=== PATIENT | female | born 1965 | race Caucasian/White ===

== ENCOUNTER → 2016-08-13 | Outpatient (CLI) | payer OTHER ==
--- NOTE | 2016-08-14 08:40 | MM ---
Reason for exam: screening (asymptomatic). Last mammogram was performed 1 year ago. History: Benign left breast aspiration of the left breast, June 08, 2013. Took estrogen for 6 months beginning at age 47. Physical Findings: A clinical breast exam by your physician is recommended on an annual basis and results should be correlated with mammographic findings. MG Screening Mammo w CAD Bilateral CC and MLO view(s) were taken. Prior study comparison: August 08, 2015, bilateral MG screening mammo w CAD. July 26, 2014, bilateral MG diagnostic mammo w CAD PRICILA. There are scattered fibroglandular densities. No significant changes when compared with prior studies. ASSESSMENT: Negative, BI-RAD 1 RECOMMENDATION: Routine screening mammogram of both breasts in 1 year.
== END | disposition home or self-care (01) ==
LOC: RADMAMWWP 11:10
PROVIDERS: ATTEND Internal Medicine
DX: Z12.31 Encounter for screening mammogram for malignant neoplasm of breast (principal)

== ENCOUNTER → 2017-10-28 | Outpatient (CLI) | payer OTHER ==
--- NOTE | 2017-10-29 10:45 | MM ---
Reason for exam: screening (asymptomatic). Last mammogram was performed 1 year and 2 months ago. History: Benign left breast aspiration of the left breast, June 08, 2013. Took estrogen for 6 months beginning at age 47. Physical Findings: A clinical breast exam by your physician is recommended on an annual basis and results should be correlated with mammographic findings. MG Screening Mammo w CAD Bilateral CC and MLO view(s) were taken. Prior study comparison: August 13, 2016, bilateral MG screening mammo w CAD. August 08, 2015, bilateral MG screening mammo w CAD. There are scattered fibroglandular densities. There is no discrete abnormality. ASSESSMENT: Negative, BI-RAD 1 RECOMMENDATION: Routine screening mammogram of both breasts in 1 year.
== END | disposition home or self-care (01) ==
LOC: RADMAMWWP 10:02
PROVIDERS: ATTEND Internal Medicine
DX: Z12.31 Encounter for screening mammogram for malignant neoplasm of breast (principal)
CPT/HCPCS: 77067

== ENCOUNTER → 2019-04-18 | Outpatient (CLI) | payer OTHER ==
[2019-04-18 11:43] LABS: Basophils # (A) 0.1 k/uL (0-0.2); Basophils % (A) 1 %; Eosinophils # (A) 0.2 k/uL (0-0.7); Eosinophils % (A) 2 %; HCT 48.5 % (34.0-46.0); HGB 15.6 gm/dL (11.4-16.0); Lymphocytes # (A) 2.4 k/uL (1.0-4.8); Lymphocytes % (A) 23 %; MCH 30.3 pg (25.0-35.0); MCHC 32.1 g/dL (31.0-37.0); MCV 94.3 fL (80.0-100.0); Monocytes # (A) 0.6 k/uL (0-1.0); Monocytes % (A) 5 %; Neutrophils # (A) 7.2 k/uL (1.3-7.7); Neutrophils % (A) 68 %; Platelet Count 392 k/uL (150-450); RBC 5.14 m/uL (3.80-5.40); RDW 12.8 % (11.5-15.5); WBC 10.6 k/uL (3.8-10.6)
[2019-04-18 11:50] LABS: ALT 18 U/L (4-34); AST 23 U/L (14-36); African American GFR (CKD) >90 (>60 ml/min/1.73 sqM); Albumin 4.4 g/dL (3.5-5.0); Alkaline Phosphatase 68 U/L (38-126); Anion Gap 6 mmol/L; Blood Urea Nitrogen 15 mg/dL (7-17); Calcium 9.9 mg/dL (8.4-10.2); Carbon Dioxide 28 mmol/L (22-30); Chloride 106 mmol/L (98-107); Cholesterol 221 mg/dL (<200); Glucose 108 mg/dL (74-99); HDL Cholesterol 62 mg/dL (40-60); LDL Cholesterol,Calculated 133 mg/dL (0-99); Non-African American GFR(CKD) >90 (>60 ml/min/1.73 sqM); Potassium 5.1 mmol/L (3.5-5.1); Sodium 140 mmol/L (137-145); Total Bilirubin 0.6 mg/dL (0.2-1.3); Total Protein 7.2 g/dL (6.3-8.2); Triglycerides 128 mg/dL (<150)
--- NOTE | 2019-04-18 16:06 | XR ---
EXAMINATION TYPE: XR knee limited LT DATE OF EXAM: 04/18/2019 COMPARISON: None HISTORY: Knee arthropathy TECHNIQUE: 2 view left knee FINDINGS: Joint spaces are preserved. No joint effusion is evident. No acute osseous abnormality is e vident. IMPRESSION: 1. Normal 2 view left knee.
== END | disposition home or self-care (01) ==
LOC: RADXRMAIN 10:17
PROVIDERS: ATTEND Internal Medicine
DX: M17.10 Unilateral primary osteoarthritis, unspecified knee (principal); Z00.01 Encounter for general adult medical examination with abnormal findings; E78.00 Pure hypercholesterolemia, unspecified
CPT/HCPCS: 36415; 80053; 80061; 85025

== ENCOUNTER → 2019-08-24 | Outpatient (CLI) | payer OTHER ==
--- NOTE | 2019-08-26 13:29 | MM ---
Reason for exam: screening (asymptomatic). Last mammogram was performed 1 year and 10 months ago. History: Patient is postmenopausal. Benign left breast aspiration of the left breast, June 08, 2013. Took estrogen for 6 months beginning at age 47. Physical Findings: A clinical breast exam by your physician is recommended on an annual basis and results should be correlated with mammographic findings. MG Screening Mammo w CAD Bilateral CC and MLO view(s) were taken. Prior study comparison: October 28, 2017, bilateral MG screening mammo w CAD. August 13, 2016, bilateral MG screening mammo w CAD. August 08, 2015, bilateral MG screening mammo w CAD. November 18, 2013, left breast MG diagnostic mammo LT w CAD. There are scattered fibroglandular densities. No significant changes when compared with prior studies. ASSESSMENT: Benign, BI-RAD 2 RECOMMENDATION: Routine screening mammogram of both breasts in 1 year.
== END | disposition home or self-care (01) ==
LOC: RADMAMWWP 09:03
PROVIDERS: ATTEND Internal Medicine
DX: Z12.31 Encounter for screening mammogram for malignant neoplasm of breast (principal)
CPT/HCPCS: 77067

== ENCOUNTER → 2020-11-14 | Outpatient (CLI) | payer OTHER ==
--- NOTE | 2020-11-15 09:32 | MM ---
Reason for exam: screening (asymptomatic). Last mammogram was performed 1 year and 3 months ago. History: Patient is postmenopausal. Family history of breast cancer in sister at age 53. Benign left breast aspiration of the left breast, June 08, 2013. Took estrogen for 6 months beginning at age 47. Physical Findings: A clinical breast exam by your physician is recommended on an annual basis and results should be correlated with mammographic findings. MG 3D Screening Mammo W/Cad Bilateral CC and MLO view(s) were taken. Prior study comparison: August 24, 2019, bilateral MG screening mammo w CAD. October 28, 2017, bilateral MG screening mammo w CAD. The breast tissue is heterogeneously dense. This may lower the sensitivity of mammography. There is no discrete abnormality. No significant changes when compared with prior studies. ASSESSMENT: Negative, BI-RAD 1 RECOMMENDATION: Routine screening mammogram of both breasts in 1 year.
== END | disposition home or self-care (01) ==
LOC: RADMAMWWP 10:56
PROVIDERS: ATTEND Internal Medicine
DX: Z12.31 Encounter for screening mammogram for malignant neoplasm of breast (principal); Z78.0 Asymptomatic menopausal state; Z80.3 Family history of malignant neoplasm of breast
CPT/HCPCS: 77063; 77067

== ENCOUNTER → 2021-05-16 | Outpatient (CLI) | payer OTHER ==
--- NOTE | 2021-05-16 13:51 | XR ---
Lumbosacral spine, sacrum and coccyx 3 views of the sacrum and coccyx, 5 views lumbosacral spine history: G544 LS ROOT DISORDERS Anterolisthesis grade 1 L5-S1. Lumbar vertebral bodies show preserved height. No evident spondylolysi s. There is multilevel spondylosis. Loss of disc height is present at intervertebral levels. Sclerosi s present in the posterior elements of the lower lumbar spine. Loss of disc height present at L5-S1, L4-5 greater than L2-3, L4-5. Bone mineralization is reduced. Sclerosis present in the posterior [place] ents. Questionable 3 mm calcification superimposed over the right kidney could possibly represent bow el content, possible largest calcification or 4 5 mm overlying the left kidney. Sacrum is intact. Pro bable phleboliths, vascular calcifications within the pelvis. Sacroiliac joints show no erosion or an kylosis, mild hypertrophic change, spurring suspected inferiorly. IMPRESSION: Degenerative disc disease, osteopenia, spinal listhesis and facet arthropathy. Difficult to exclude nephrolithiasis. Mild arthropathy of the sacroiliac joints suspected.
== END | disposition home or self-care (01) ==
LOC: RADXRYALE 13:16
PROVIDERS: ATTEND Internal Medicine
DX: M51.36 Other intervertebral disc degeneration, lumbar region (principal); M85.88 Other specified disorders of bone density and structure, other site; M47.816 Spondylosis without myelopathy or radiculopathy, lumbar region; M43.16 Spondylolisthesis, lumbar region
CPT/HCPCS: 72110; 72220

== ENCOUNTER → 2022-01-02 | Outpatient (CLI) | payer OTHER ==
--- NOTE | 2022-01-03 08:03 | MM ---
Reason for Exam: Screening (asymptomatic). Last mammogram was performed 1 year(s) and 2 month(s) ago. Patient History: Menarche at age 10. First Full-Term at age 16. Hysterectomy at age 27. Postmenopausal. Estrogen for 6 months from age 47 until age 48. 06/08/2013, Benign Cyst Aspiration on the left side. Sister had breast cancer, age 53. Risk Values: Marci 5 year model risk: 2.6%. NCI Lifetime model risk: 15.4%. Prior Study Comparison: 10/28/2017 Bilateral Screening Mammogram, [facility]. 08/24/2019 Bilateral Screening Mammogram, [facility]. 11/14/2020 Bilateral Screening Mammogram, [facility]. Tissue Density: The breast tissue is almost entirely fat. Findings: Analyzed By CAD. There is no suspicious group of microcalcifications or new suspicious mass in either breast. Overall Assessment: Negative, BI-RAD 1 Management: Screening Mammogram of both breasts in 1 year. A clinical breast exam by your physician is recommended on an annual basis and results should be correlated with mammographic findings. [facility] will attempt to contact patient to return for supplemental views and ultrasound if indicated. Electronically signed and approved by: Anders Valdivia DO
== END | disposition home or self-care (01) ==
LOC: RADMAMWWP 09:47
PROVIDERS: ATTEND Internal Medicine
DX: Z12.31 Encounter for screening mammogram for malignant neoplasm of breast (principal); Z78.0 Asymptomatic menopausal state; Z80.3 Family history of malignant neoplasm of breast
CPT/HCPCS: 77063; 77067

== ENCOUNTER → 2022-06-19 | Outpatient (CLI) | payer OTHER ==
--- NOTE | 2022-06-19 18:54 | CA ---
Transthoracic Echo Report Name: Tonny Gupta Age: 56 Gender: F : 1965 Exam Date: 06/19/2022 12:34 Exam Location: [facility] Ht (in): 61 Wt (lb): 160 Ordering Physician: Kim Garcia MD Attending/Referring Phys: Crime Specialist Aida Damon RDCS Procedure CPT: Indications: R00.2 Cardiac Hx: Technical Quality: Good Contrast 1: Total Dose (mL): Contrast 2: Total Dose (mL): MEASUREMENTS (Male / Female) Normal Values 2D ECHO LV Diastolic Diameter PLAX 4.1 cm 4.2 - 5.9 / 3.9 - 5.3 cm LV Systolic Diameter PLAX 2.7 cm IVS Diastolic Thickness 0.8 cm 0.6 - 1.0 / 0.6 - 0.9 cm LVPW Diastolic Thickness 1.1 cm 0.6 - 1.0 / 0.6 - 0.9 cm LV Relative Wall Thickness 0.5 RV Internal Dim ED PLAX 2.8 cm LA Systolic Diameter LX 2.8 cm 3.0 - 4.0 / 2.7 - 3.8 cm LV Diastolic Volume MOD 4C 84.5 cm??? LV Systolic Volume MOD 4C 34.3 cm??? LV Ejection Fraction MOD 4C 59.4 % LV Diastolic Length 4C 8.4 cm LV Systolic Length 4C 6.5 cm LV Diastolic Volume MOD 2C 54.4 cm??? LV Systolic Volume MOD 2C 21.3 cm??? LV Ejection Fraction MOD 2C 60.8 % LV Diastolic Length 2C 8.1 cm LV Systolic Length 2C 6.4 cm LA Volume 30.8 cm??? 18 - 58 / 22 - 52 cm??? M-MODE Aortic Root Diameter MM 2.8 cm MV E Point Septal Separation 0.5 cm AV Cusp Separation MM 1.9 cm DOPPLER AV Peak Velocity 126.7 cm/s AV Peak Gradient 6.4 mmHg MV Area PHT 2.4 cm??? Mitral E Point Velocity 56.7 cm/s Mitral A Point Velocity 74.5 cm/s Mitral E to A Ratio 0.8 MV Deceleration Time 314.5 ms MV E' Velocity 8.0 cm/s Mitral E to MV E' Ratio 7.1 TR Peak Velocity 194.8 cm/s TR Peak Gradient 15.2 mmHg Right Ventricular Systolic Press 20.2 mmHg FINDINGS Left Ventricle Left ventricular ejection fraction is estimated at 55-60 %. Left ventricular cavity size normal. Right Ventricle Normal right ventricular size and function. Right ventricular systolic pressure within normal limits. Right Atrium Normal right atrial size. Left Atrium Normal left atrial size. Mitral Valve Structurally normal mitral valve. No mitral stenosis, or prolapse. Trace mitral regurgitation Aortic Valve Trileaflet aortic valve. No aortic valve stenosis or regurgitation. Tricuspid Valve Structurally normal tricuspid valve. No tricuspid stenosis, or prolapse. Mild tricuspid regurgitation Pulmonic Valve Structurally normal pulmonic valve. No pulmonic regurgitation. Pericardium Normal pericardium. No pericardial effusion. Aorta Normal size aortic root and proximal ascending aorta. CONCLUSIONS 1. Normal left ventricle size and systolic function 2. Mild tricuspid regurgitation with no evidence of pulmonary hypertension Previewed by: Dr. Karlene Woodruff MD (Electronically Signed) Final Date: 19 Jun 2022 18:53
== END | disposition home or self-care (01) ==
LOC: RADECHMAIN 12:20
PROVIDERS: ATTEND Internal Medicine
DX: I07.1 Rheumatic tricuspid insufficiency (principal); R00.2 Palpitations
CPT/HCPCS: 93306

== ENCOUNTER → 2022-06-21 | Outpatient (CLI) | payer OTHER ==
--- NOTE | 2022-06-21 12:27 | CA ---
Exercise Stress Test Report Name: Tonny Gupta Exam Date: 06/21/2022 09:06 Exam Location: [facility] Ht (in): 61 Wt (lb): 160 BSA: 1.72 Ordering Phys: Kim Garcia MD Referring Phys: DOMINGA, Technologist: Austen Zhao Age: 56 Gender: F : 1965 Procedure CPT: Indications: R00.2 palpitations ICD-10 Codes: Patient History: Medications: METFORMIN, CRESTOR Meds past 24 hrs: Pretest Chest Pain: STRESS TEST Kareem Protocol Exercise Duration (min:sec): 08:[address] Depressions (mm): 0 Angina Score: 0 Duong Score: 8.12 Resting HR (bpm): 92 Peak HR (bpm): 164 Resting BP (mmHg): 139 / 85 Peak BP (mmHg): 190 / 73 MPHR: 163 Target HR: 139 % MPHR: 101 METS: 10.3 Total Dose: Peak Dose: Atropine: Double Product: 91274 BP Response: Stress Termination: Reached target heart rate Stress Symptoms: NO SYMPTOMS Stress Summary: The patient's target heart rate was achieved ECG ANALYSIS Resting ECG: Sinus rhythm. Normal conduction. No arrhythmias. Normal repolarization. Stress ECG: No ECG evidence of ischemia with exercise. CONCLUSIONS 1. Good exercise tolerance 2. Normal electrocardiographic response to exercise with no evidence of stress induced ischemia. Dr. Karlene Woodruff MD (Electronically Signed) Final Date: 21 Jun 2022 12:26
== END | disposition home or self-care (01) ==
LOC: RADNMMAIN 08:33
PROVIDERS: ATTEND Internal Medicine
DX: R07.9 Chest pain, unspecified (principal); R00.2 Palpitations
CPT/HCPCS: 93017

== ENCOUNTER → 2023-02-01 | Outpatient (CLI) | payer OTHER ==
[2023-02-01 20:56] LABS: Shrimp IgE <0.10 kU/L; Walnut IgE (Food) 0.94 kU/L
== END | disposition home or self-care (01) ==
LOC: LABWHC1 13:36
PROVIDERS: ATTEND Otolaryngology
DX: L50.0 Allergic urticaria (principal); J30.89 Other allergic rhinitis; B44.89 Other forms of aspergillosis
CPT/HCPCS: 36415; 86003

== ENCOUNTER → 2023-03-26 | Outpatient (CLI) | payer OTHER ==
[2023-03-26 20:04] LABS: Clam IgE <0.10 kU/L; Codfish IgE <0.10 kU/L; Egg White IgE <0.10 kU/L; Peanut IgE 1.76 kU/L; Scallop IgE <0.10 kU/L; Shrimp IgE <0.10 kU/L; Soybean IgE 1.23 kU/L; Walnut IgE (Food) 0.75 kU/L
== END | disposition home or self-care (01) ==
LOC: LABWHC1 11:43
PROVIDERS: ATTEND Otolaryngology
DX: J30.89 Other allergic rhinitis (principal)
CPT/HCPCS: 36415; 82785; 86003

== ENCOUNTER → 2023-03-27 | Outpatient (CLI) | payer OTHER ==
--- NOTE | 2023-03-27 16:32 | MR ---
EXAMINATION TYPE: MR brain wo con DATE OF EXAM: 03/27/2023 3:36 PM CLINICAL INDICATION:Female, 57 years old with history of R42 DIZZINESS GIDDINESS; PHH, Dizziness, vis ion changes, nausea, ringing in both ears COMPARISON: None. TECHNIQUE: Multi planar, multi sequence imaging was performed through the brain including: T1, T2, In version recovery, Diffusion weighted imaging, and gradient echo imaging. No gadolinium was given. FINDINGS: The restrepo-white junctions, ventricular system, basal cisterns appear unremarkable. Single focus of whi te matter change in the left frontal lobe measuring up to 6 mm. Midline structures show no abnormalit y. Diffusion-weighted imaging shows no evidence of restricted diffusion. The susceptibility weighted images do not reveal any evidence for micro-hemorrhage. Blooming artifact within the left frontal lob e compatible with omental venous anomaly. Probable prominent perivascular spaces bilaterally in the b aguilar ganglia. The bone marrow signal is within normal limits. Paranasal sinuses and mastoid air cells: No significant paranasal sinus disease. Visualized orbits: Orbital contents are intact. The internal auditory canal sequences demonstrate no significant irregularity. The 7th cranial nerve s, 8 cranial nerves, and cerebellar pontine angles appear unremarkable. After the administration italia olinium, no abnormal enhancement is seen within the internal auditory canals. IMPRESSION: 1. No evidence of intracranial mass or acute/subacute infarct. 2. Single focus of nonspecific white matter change in left frontal lobe. 3. Left frontal lobe developmental venous anomaly. 4. No evidence of internal auditory canal abnormality.
== END | disposition home or self-care (01) ==
LOC: RADMRIMAIN 14:25
PROVIDERS: ATTEND Internal Medicine
DX: R42 Dizziness and giddiness (principal); G31.89 Other specified degenerative diseases of nervous system
CPT/HCPCS: 70551

== ENCOUNTER 2023-04-14 12:15 | Emergency (ER) | payer OTHER ==
[2023-04-14] MEDS: methylPREDNISolone SOD SUCCI 125 MG/2 ML VIAL IV STA (13:42)
[2023-04-14] MEDS: FAMOTIDINE 20 MG/2 ML VIAL IV STA (13:45)
[2023-04-14] MEDS: diphenhydrAMINE 50 MG/ML 1 ML VIAL IVP STA (13:46)
[2023-04-14 14:13] VITALS: BP 146/82; PULSE 98; RESP 17; TEMP 98.5
--- NOTE | 2023-04-14 14:28 | ED ---
Allergic Reaction HPI - General Chief complaint: Allergic Reaction Stated complaint: Allergic Reaction Time Seen by Provider: 04/14/23 12:40 Source: patient Mode of arrival: ambulatory Limitations: no limitations - History of Present Illness Initial Comments: Patient is a 57-year-old female who presents to the emergency department with worsening allergic symptoms. States that she has had allergic symptoms for the past 3 months. She has been following with Dr. Frank. He has done several tests and the patient states that she has a lot of food allergies. She feels as if over the past couple of days she has had worsening symptoms. She feels as if she is having a difficult time breathing and swallowing. She takes Shamika and Pepcid every day. She states that she has had to take Benadryl pretty consistently because her symptoms seem to have worsened. She is unsure of her current trigger. She has plans to be seen at [facility] for her condition. No other alleviating, precipitating or modifying factors - Related Data Previous Rx's Medication Instructions Recorded predniSONE [Deltasone] 20 mg PO DIRECTED #34 tab 04/14/23 Allergies Allergy/AdvReac Type Severity Reaction Status Date / Time No Known Allergies Allergy Verified 04/14/23 12:36 Review of Systems ROS Statement: Those systems with pertinent positive or pertinent negative responses have been documented in the HPI. ROS Other: All systems not noted in ROS Statement are negative. Past Medical History Past Medical History: No Reported History History of Any Multi-Drug Resistant Organisms: None Reported Past Surgical History: Section, Tonsillectomy Past Psychological History: No Psychological Hx Reported Smoking Status: Current every day smoker Past Alcohol Use History: None Reported Past Drug Use History: None Reported General Exam Limitations: no limitations General appearance: alert, in no apparent distress Head exam: Present: atraumatic, normocephalic, normal inspection Eye exam: Present: normal appearance, PERRL, EOMI. Absent: scleral icterus, conjunctival injection, periorbital swelling ENT exam: Present: normal exam, mucous membranes moist Neck exam: Present: normal inspection. Absent: tenderness, meningismus, lymphadenopathy Respiratory exam: Present: normal lung sounds bilaterally. Absent: respiratory distress, wheezes, rales, rhonchi, stridor Cardiovascular Exam: Present: regular rate, normal rhythm, normal heart sounds. Absent: systolic murmur, diastolic murmur, rubs, gallop, clicks GI/Abdominal exam: Present: soft, normal bowel sounds. Absent: distended, tenderness, guarding, rebound, rigid Extremities exam: Present: normal inspection, full ROM, normal capillary refill. Absent: tenderness, pedal edema, joint swelling, calf tenderness Back exam: Present: normal inspection Neurological exam: Present: alert, oriented X3, CN II-XII intact Psychiatric exam: Present: normal affect, normal mood Skin exam: Present: warm, dry, intact, normal color. Absent: rash Course Vital Signs 04/14/23 04/14/23 04/14/23 12:34 13:30 13:45 Temperature 98.8 F 98.5 F Pulse Rate 101 H 98 Respiratory 16 17 17 Rate Blood Pressure 146/78 146/82 O2 Sat by Pulse 97 100 Oximetry Medical Decision Making - Medical Decision Making Was pt. sent in by a medical professional or institution (, PA, FISH PROTECTOR, urgent care, hospital, or skilled nursing...) When possible be specific @ -No Did you speak to anyone other than the patient for history (EMS, parent, family, police, friend...)? What history was obtained from this source @ -No Did you review nursing and triage notes (agree or disagree)? Why? @ -I reviewed and agree with nursing and triage notes Were old charts reviewed (outside hosp., previous admission, EMS record, old EKG, old radiological studies, urgent care reports/EKG's, skilled nursing records)? Report findings @ -No old charts were reviewed Differential Diagnosis (chest pain, altered mental status, abdominal pain women, abdominal pain men, vaginal bleeding, weakness, fever, dyspnea, syncope, headache, dizziness, GI bleed, back pain, seizure, CVA, palpatations, mental health, musculoskeletal)? @ -Allergic reaction, anaphylaxis, reflux, anxiety EKG interpreted by me (3pts min.). @ -Not done X-rays interpreted by me (1pt min.). @ -None done CT interpreted by me (1pt min.). @ -None done U/S interpreted by me (1pt. min.). @ -None done What testing was considered but not performed or refused? (CT, X-rays, U/S, labs)? Why? @ -None What meds were considered but not given or refused? Why? @ -None Did you discuss the management of the patient with other professionals (professionals i.e. , PA, FISH PROTECTOR, lab, RT, psych nurse, social sciences professor, flight attendant ramp, teacher, wildlife officer, child support case officer)? Give summary @ -No Was smoking cessation discussed for >3mins.? @ -No Was critical care preformed (if so, how long)? @ -No Were there social determinants of health that impacted care today? How? (Homelessness, low income, unemployed, alcoholism, drug addiction, transportation, low edu. Level, literacy, decrease access to med. care, penitentiary, rehab)? @ -No Was there de-escalation of care discussed even if they declined (Discuss DNR or withdrawal of care, Hospice)? DNR status @ -No What co-morbidities impacted this encounter? (DM, HTN, Smoking, COPD, CAD, Cancer, CVA, ARF, Chemo, Hep., AIDS, mental health diagnosis, sleep apnea, morbid obesity)? @ -None Was patient admitted / discharged? Hospital course, mention meds given and route, prescriptions, significant lab abnormalities, going to OR and other pertinent info. @ -Upon arrival patient was placed into room 4. Thorough history and physical exam was performed. Patient has no visible signs of hives. No itching. No vomiting. No signs of respiratory distress. No tongue or lip swelling. No facial swelling. No neck swelling. She feels as if she cannot swallow but posterior pharynx is clear. No stridor. Patient was given Pepcid Benadryl and Solu-Medrol. She is reevaluated and states that she does feel improved. At this time the patient will be discharged home. I recommend that she follow-up with an deicer repairer electric for further testing. She will be placed on a prednisone course. She is to continue taking her Shamika, Pepcid and Benadryl. Return for any new or worsening symptoms. Patient agreeable and discharged in stable condition Undiagnosed new problem with uncertain prognosis? @ -Yes Drug Therapy requiring intensive monitoring for toxicity (Heparin, Nitro, Insulin, Cardizem)? @ -No Were any procedures done? @ -No Diagnosis/symptom? @ -Acute dysphagia, possible allergic reaction Acute, or Chronic, or Acute on Chronic? @ -Acute Uncomplicated (without systemic symptoms) or Complicated (systemic symptoms)? @ -Complicated Side effects of treatment? @ -No Exacerbation, Progression, or Severe Exacerbation? @ -No Poses a threat to life or bodily function? How? (Chest pain, [place], [place], pneumonia, PE, COPD, DKA, ARF, appy, cholecystitis, CVA, Diverticulitis, Homicidal, Suicidal, threat to staff... and all critical care pts) @ -No Disposition Clinical Impression: Allergic reaction Disposition: HOME SELF-CARE Condition: Stable Instructions (If sedation given, give patient instructions): General Allergic Reaction (ED) Additional Instructions: Please follow-up with the deicer repairer electric or HOME THEATRE TECHNICIAN for further management of your symptoms. Continue taking the Pepcid, Benadryl and Shamika. Use the EpiPen for any airway compromise or passing out. Return for any new or worsening symptoms Prescriptions: predniSONE [Deltasone] 20 mg PO DIRECTED #34 tab Is patient prescribed a controlled substance at d/c from ED?: No Referrals: Kim Garcia MD [Primary Care Provider] - 1-2 days Time of Disposition: 14:28
== END 2023-04-14 14:39 | disposition home or self-care (01) ==
LOC: EC 12:15
DX: T78.40XA Allergy, unspecified, initial encounter (principal); F17.200 Nicotine dependence, unspecified, uncomplicated
CPT/HCPCS: 99283; 96374; 96375 ×2; J1200; J2930; J3490

== ENCOUNTER → 2023-05-07 | Outpatient (CLI) | payer OTHER ==
--- NOTE | 2023-05-07 14:19 | XR ---
EXAMINATION TYPE: XR chest 2V DATE OF EXAM: 05/07/2023 COMPARISON: NONE TECHNIQUE: PA and lateral views submitted. HISTORY: Shortness of breath FINDINGS: The lungs are clear and there is no pneumothorax, pleural effusion, or focal pneumonia. Heart size normal and no overt failure. Osseous structures demonstrate hypertrophic and degenerative changes of the spine. Atherosclerotic change aorta. IMPRESSION: 1. No acute process.
[2023-05-07 18:08] LABS: Basophils # (A) 0.04 X 10*3/uL (0.00-0.10); Basophils % (A) 0.4 %; Eosinophils # (A) 0.07 X 10*3/uL (0.04-0.35); Eosinophils % (A) 0.7 %; HCT 44.6 % (37.2-46.3); HGB 14.9 g/dL (12.0-15.0); Lymphocytes # (A) 2.07 X 10*3/uL (0.90-5.00); Lymphocytes % (A) 21.2 %; MCHC 33.4 g/dL (32.0-37.0); MCV 92.9 FL (80.0-97.0); Mean Platelet Volume 10.7 FL (9.5-12.2); Monocytes # (A) 0.71 X 10*3/uL (0.20-1.00); Monocytes % (A) 7.3 %; NRBC Per 100 WBC 0 X 10*3/uL (0.00-0.01); Neutrophils # (A) 6.85 X 10*3/uL (1.80-7.70); Neutrophils % (A) 70.1 %; Platelet Count 312 X 10*3/uL (140-440); RDW 14.5 % (11.5-14.5); WBC 9.77 X 10*3/uL (4.50-10.00)
[2023-05-07 18:17] LABS: Erythrocyte Sedimentation Rate 9 mm/Hr (0-30)
[2023-05-07 18:30] LABS: Iron 68 UG/DL (50-170); Rheumatoid Factor, Qnt <15 IU/mL (0-15); Total Iron Binding Capacity 393 UG/DL (228-460)
[2023-05-08 14:17] LABS: Chocolate IgE Class CLASS 0; Lettuce IgE Class CLASS 3; Pork IgE Class CLASS 0
== END | disposition home or self-care (01) ==
LOC: RADXRMAIN 13:57
PROVIDERS: ATTEND Internal Medicine Hematology & Oncology
DX: D72.829 Elevated white blood cell count, unspecified (principal); M31.0 Hypersensitivity angiitis; J30.89 Other allergic rhinitis; R06.02 Shortness of breath
CPT/HCPCS: 71046; 82728; 83520; 83540; 83550; 85025; 85652; 86003; 86038; 86431

== ENCOUNTER → 2023-05-29 | Outpatient (CLI) | payer OTHER ==
[2023-05-30 14:41] LABS: Apple IgE Class CLASS 3; Cucumber IgE Class CLASS 3; Oat IgE Class CLASS 3; Onion IgE Class CLASS 3; Pear IgE Class CLASS 3; Potato IgE Class CLASS 3
[2023-05-30 14:42] LABS: Coffee IgE 0.31 kU/L (<0.10); Coffee IgE Class CLASS 0/1; Peach IgE Class CLASS 3
== END | disposition home or self-care (01) ==
LOC: LABWHC1 15:21
PROVIDERS: ATTEND Internal Medicine Gastroenterology
DX: L50.0 Allergic urticaria (principal); J30.89 Other allergic rhinitis; B44.89 Other forms of aspergillosis; R23.2 Flushing
CPT/HCPCS: 36415; 83520; 86003; 86316

== ENCOUNTER → 2023-05-30 | Outpatient (CLI) | payer OTHER | END | disposition home or self-care (01) | LOC: LABWHC1 08:24 | PROVIDERS: ATTEND Internal Medicine Gastroenterology | DX: R23.2 Flushing (principal) ==

== ENCOUNTER 2023-06-05 21:17 | Emergency (ER) | payer OTHER ==
--- NOTE | 2023-06-05 22:05 | ED ---
General Adult HPI - General Chief complaint: Allergic Reaction Stated complaint: Allergic Reaction, Numb lips and tongue Time Seen by Provider: 06/05/23 21:26 Source: patient Mode of arrival: ambulatory Limitations: no limitations - History of Present Illness Initial comments: Dictation was produced using [employer] dictation software. please excuse any gramma tical, word or spelling errors. Chief Complaint: 57-year-old female presents to the emergency department with allergic reaction History of Present Illness: Patient is a 57-year-old female she states that she has several allergies. She has undergone allergy testing and is allergic to multiple substances over the last several minutes she has had allergic reaction including sensation of her throat closing, indigestion. Denies any shortness of breath. Does complain of tingling to her lips. Denies any obvious allergen exposure. She has an EpiPen. The ROS documented in this emergency department record has been reviewed and confirmed by me. Those systems with pertinent positive or negative responses have been documented in the HPI. All other systems are other negative and/or noncontributory. - Related Data Previous Rx's Medication Instructions Recorded predniSONE [Deltasone] 20 mg PO DIRECTED #34 tab 04/14/23 Allergies Allergy/AdvReac Type Severity Reaction Status Date / Time No Known Allergies Allergy Verified 06/05/23 21:20 Review of Systems ROS Statement: Those systems with pertinent positive or pertinent negative responses have been documented in the HPI. ROS Other: All systems not noted in ROS Statement are negative. Past Medical History Past Medical History: No Reported History History of Any Multi-Drug Resistant Organisms: None Reported Past Surgical History: Section, Tonsillectomy Past Psychological History: No Psychological Hx Reported Smoking Status: Current every day smoker Past Alcohol Use History: None Reported Past Drug Use History: None Reported General Exam - General Exam Comments Initial Comments: PHYSICAL EXAM: General Impression: Alert and oriented x3, not in acute distress HEENT: Normocephalic atraumatic, extra-ocular movements intact, pupils equal and reactive to light bilaterally, mucous membranes moist. Cardiovascular: Heart regular rate and rhythm Chest: Able to complete full sentences, no retractions, no tachypnea Abdomen: abdomen soft, non-tender, non-distended, no organomegaly Musculoskeletal: Pulses present and equal in all extremities, no peripheral edema Motor: no focal deficits noted Neurological: CN II-XII grossly intact, no focal motor or sensory deficits noted Skin: Intact with no visualized rashes Psych: Normal affect and mood Limitations: no limitations Course Vital Signs 06/05/23 21:18 Temperature 98 F Pulse Rate 100 Respiratory 18 Rate Blood Pressure 129/84 O2 Sat by Pulse 96 Oximetry - Reevaluation(s) Reevaluation #1: 06/05/23 22:04 Patient has multisystem involvement. Was recommended to patient to get an EpiPen. She does not have any cardiac disease. At this point her symptoms are concerning. She refused EpiPen treatment would prefer to be monitored after being given Decadron and Pepcid and diphenhydramine. Patient states she is afraid to receive epi. She does not feel like her symptoms are that severe. Medical Decision Making - Medical Decision Making Was pt. sent in by a medical professional or institution (, [facility]TY, [facility], urgent care, hospital, or residential...) When possible be specific @ -No Did you speak to anyone other than the patient for history (EMS, parent, family, police, friend...)? What history was obtained from this source @ -No Did you review nursing and triage notes (agree or disagree)? Why? @ -I reviewed and agree with nursing and triage notes Were old charts reviewed (outside hosp., previous admission, EMS record, old EKG, old radiological studies, urgent care reports/EKG's, residential records)? Report findings @ -No old charts were reviewed Differential Diagnosis (chest pain, altered mental status, abdominal pain women, abdominal pain men, vaginal bleeding, musculoskeletal, weakness, fever, dyspnea, syncope, headache, dizziness, GI bleed, back pain, seizure, CVA, palpatations, mental health)? @ -Not applicable EKG interpreted by me (3pts min.). @ -None done X-rays interpreted by me (1pt min.). @ -None done CT interpreted by me (1pt min.). @ -None done U/S interpreted by me (1pt. min.). @ -None done What testing was considered but not performed or refused? (CT, X-rays, U/S, labs)? Why? @ -None What meds were considered but not given or refused? Why? @ -None Did you discuss the management of the patient with other professionals (professionals i.e. , PA, [facility] [facility], lab, RT, psych nurse, social work supervisor, spooler operator, teacher, sales promotion officer, family independence case manager)? Give summary @ -No Was smoking cessation discussed for >3mins.? @ -No Was critical care preformed (if so, how long)? @ -No Were there social determinants of health that impacted care today? How? (Homelessness, low income, unemployed, alcoholism, drug addiction, transportation, low edu. Level, literacy, decrease access to med. care, correction, rehab)? @ -No Was there de-escalation of care discussed even if they declined (Discuss DNR or withdrawal of care, Hospice)? DNR status @ -No What co-morbidities impacted this encounter? (DM, HTN, Smoking, COPD, CAD, Cancer, CVA, ARF, Chemo, Hep., AIDS, mental health diagnosis, sleep apnea, morbid obesity)? @ -None Was patient admitted / discharged? Hospital course, mention meds given and route, prescriptions, significant lab abnormalities, going to OR and other pertinent info. @ -57-year-old female presents to the emergency department for allergic reactions. Vital signs upon arrival are within acceptable limits. Patient no acute distress. She does have some concerning symptoms however. She was offered EpiPen however refused. She wanted to try steroids and antihistamines. Patient given IM injections diphenhydramine and Decadron. She is given oral Pepcid. Patient monitored in emergency department for several minutes with improvement of condition. Patient wants to be discharged. She still to follow- up with her outpatient doctors. Patient has EpiPen's that she carries with her at all times. Undiagnosed new problem with uncertain prognosis? @ -No Drug Therapy requiring intensive monitoring for toxicity (Heparin, Nitro, Insulin, Cardizem)? @ -No Were any procedures done? @ -No Diagnosis/symptom? Acute, or Chronic, or Acute on Chronic? Uncomplicated (without systemic symptoms) or Complicated (systemic symptoms)? @ -Allergic reaction Side effects of treatment? @ -No Exacerbation, Progression, or Severe Exacerbation? @ -No Poses a threat to life or bodily function? How? (Chest pain, [place], [place], pneumonia, PE, COPD, DKA, ARF, appy, cholecystitis, CVA, Diverticulitis, Homicidal, Suicidal, threat to staff... and all critical care pts) @ -yes Disposition Clinical Impression: Allergic reaction Disposition: HOME SELF-CARE Condition: Good Instructions (If sedation given, give patient instructions): Food Allergy (ED) Is patient prescribed a controlled substance at d/c from ED?: No Referrals: Kim Garcia MD [Primary Care Provider] - 1-2 days Time of Disposition: 23:06
[2023-06-05] MEDS: diphenhydrAMINE 50 MG/ML 1 ML VIAL IM STA (22:09)
[2023-06-05] MEDS: DEXAMETHASONE SOD PHOSPHATE 10 MG/ML 1 ML VIAL IM STA (22:09)
[2023-06-05] MEDS: FAMOTIDINE 20 MG TAB PO STA (22:10)
[2023-06-06 00:45] VITALS: BP 130/96; PULSE 92; RESP 20; TEMP 97.8
== END 2023-06-06 00:15 | disposition home or self-care (01) ==
LOC: EC 21:17
DX: T78.40XA Allergy, unspecified, initial encounter (principal); F17.200 Nicotine dependence, unspecified, uncomplicated
CPT/HCPCS: 99283; 96372 ×2; J1200; J1100

== ENCOUNTER → 2023-07-09 | Outpatient (CLI) | payer OTHER ==
[2023-07-10 13:54] LABS: Pea IgE (Grn) 3.03 kU/L (<0.10); Pea(Grn) IgE Class CLASS 2; Pineapple IgE 4.17 kU/L (<0.10); Pineapple IgE Class CLASS 3
[2023-07-10 13:55] LABS: Blueberry IgE 0.48 kU/L (<0.10); Blueberry IgE Class CLASS 1; Broccoli IgE 7.75 kU/L (<0.10); Broccoli IgE Class CLASS 3; Carrot IgE 6.36 kU/L (<0.10); Carrot IgE Class CLASS 3; Sweet Potato IgE 7.77 kU/L (<0.10); Sweet Potato IgE Class CLASS 3; Tea IgE 0.12 kU/L (<0.10); Tea IgE Class CLASS 0/1
[2023-07-10 13:56] LABS: Green Bean IgE 6.21 kU/L (<0.10); Green Bean IgE Class CLASS 3; Watermelon IgE Class CLASS 3
== END | disposition home or self-care (01) ==
LOC: LABWHC1 15:28
PROVIDERS: ATTEND Otolaryngology
DX: L50.0 Allergic urticaria (principal); J30.89 Other allergic rhinitis; B44.89 Other forms of aspergillosis
CPT/HCPCS: 36415; 86003

== ENCOUNTER → 2023-07-23 | Outpatient (CLI) | payer OTHER ==
[2023-07-23 15:09] LABS: Basophils # (A) 0.05 X 10*3/uL (0.00-0.10); Basophils % (A) 0.5 %; Eosinophils # (A) 0.09 X 10*3/uL (0.04-0.35); HCT 47.4 % (37.2-46.3); HGB 15.9 g/dL (12.0-15.0); Lymphocytes # (A) 1.98 X 10*3/uL (0.90-5.00); Lymphocytes % (A) 21.7 %; MCH 31.2 pg (27.0-32.0); MCHC 33.5 g/dL (32.0-37.0); MCV 92.9 FL (80.0-97.0); Mean Platelet Volume 9.9 FL (9.5-12.2); Monocytes # (A) 0.83 X 10*3/uL (0.20-1.00); Monocytes % (A) 9.1 %; NRBC Per 100 WBC 0 X 10*3/uL (0.00-0.01); Neutrophils # (A) 6.14 X 10*3/uL (1.80-7.70); Neutrophils % (A) 67.5 %; Platelet Count 403 X 10*3/uL (140-440); WBC 9.11 X 10*3/uL (4.50-10.00)
[2023-07-23 15:33] LABS: ALT 13 U/L (8-44); AST 13 U/L (13-35); Albumin 4.4 g/dL (3.8-4.9); Albumin/Globulin Ratio 1.91 Ratio (1.60-3.17); Alkaline Phosphatase 60 U/L (41-126); BUN/Creat Ratio 27.29 Ratio (12.00-20.00); Blood Urea Nitrogen 19.1 mg/dL (9.0-27.0); Calcium 9.5 mg/dL (8.7-10.3); Carbon Dioxide 24.3 mmol/L (21.6-31.8); Chloride 104 mmol/L (96-109); Chol/HDL Ratio 5.52 Ratio; Globulin 2.3 g/dL (1.6-3.3); Glucose 125 mg/dL (70-110); LDL Cholesterol,Calculated 233.7 mg/dL (0.0-131.0); Potassium 4.3 mmol/L (3.5-5.5); Sodium 139 mmol/L (135-145); Total Bilirubin 0.5 mg/dL (0.3-1.2); Total Protein 6.7 g/dL (6.2-8.2)
== END | disposition home or self-care (01) ==
LOC: LABWHC1 09:10
PROVIDERS: ATTEND Internal Medicine
DX: Z00.01 Encounter for general adult medical examination with abnormal findings (principal); E78.00 Pure hypercholesterolemia, unspecified; R73.9 Hyperglycemia, unspecified
CPT/HCPCS: 36415; 80053; 80061; 83036; 85025

== ENCOUNTER → 2023-11-26 | Outpatient (CLI) | payer OTHER ==
--- NOTE | 2023-11-27 10:35 | MM ---
Reason for Exam: Screening (asymptomatic). Last mammogram was performed 1 year(s) and 11 month(s) ago. Patient History: Menarche at age 10. First Full-Term at age 16. Hysterectomy at age 27. Postmenopausal. Estrogen for 6 months from age 47 until age 48. 06/08/2013, Benign Cyst Aspiration on the left side. Sister had breast cancer, age 53. Risk Values: Marci 5 year model risk: 2.8%. NCI Lifetime model risk: 14.8%. Prior Study Comparison: 08/24/2019 Bilateral Screening Mammogram, [facility]. 11/14/2020 Bilateral Screening Mammogram, [facility]. 01/02/2022 Bilateral MG 3D screening mammo w/cad, [facility]. Tissue Density: The breasts are heterogeneously dense, which may obscure small masses. Findings: Analyzed By CAD. There is no suspicious group of microcalcifications or new suspicious mass in either breast. Overall Assessment: Negative, BI-RAD 1 Management: Screening Mammogram of both breasts in 1 year. . Patient should continue monthly self-breast exams. A clinical breast exam by your physician is recommended on an annual basis. This exam should not preclude additional follow-up of suspicious palpable abnormalities. Note on Marci scores and lifetime risk: 1. A Marci score greater than 3% is considered moderate risk. If this is the case, consider specialist referral to assess eligibility for a risk reducing agent. 2. If overall lifetime risk for the development of breast cancer is 20% or higher, the patient may qualify for future screening with alternating mammogram and breast MRI. [facility], , 11/27/2023 10:32 AM. Electronically signed and approved by: Norbert Stearns M.D. Radiologis
== END | disposition home or self-care (01) ==
LOC: RADMAMWWP 10:50
PROVIDERS: ATTEND Internal Medicine
DX: Z12.31 Encounter for screening mammogram for malignant neoplasm of breast
CPT/HCPCS: 77063; 77067